=== PATIENT | female | born 1945 | race Caucasian/White ===

== ENCOUNTER 2024-07-12 08:35 | Day surgery (SDC) | payer MEDICARE, OTHER ==
[2024-07-12] VITALS (27 sets, daily range): BP systolic 94–137; BP diastolic 58–85; PULSE 80–96; RESP 8–22; TEMP 97.7; O2SAT 92–98
[~2024-07-12] VITALS: Ht 170.2 cm; Wt 107.6 kg
[~2024-07-12 08:35] MED LIST: AMI200T PO; APIX5TAB3 PO; BUSP5TAB3 PO; CITA20TA28 PO; FLUT16SP2 NS; FURO20TA4 PO; MELA1TAB11 PO; METO-539 PO; POLY17PO10 PO; POTA-188 PO; ROSU40TA89 PO; SYN0.112T PO
[2024-07-12] MEDS ORDERED: diphenhydrAMINE 25mg capsule PO ONE (09:05)
[2024-07-12] MEDS ORDERED: LORazepam 0.5 MG tablet PO ONE (09:05)
[2024-07-12] MEDS ORDERED: atropine 0.1mg/ml 10ml syringe IV ONE (09:05)
[2024-07-12] MEDS ORDERED: amiodarone 150mg/dext, iso-os 100 ML IV ONE (09:05)
[2024-07-12 09:53] LABS: EOSINOPHILS % (AUTO) 0 % (0-6); HEMOGLOBIN 12.5 g/dl (12.0-16.0); LYMPHOCYTES % (AUTO) 15.7 % (21-51); MEAN PLATELET VOLUME 7.5 FL (7.4-10.4); MONOCYTES # (AUTO) 0.5 X10'3 (0-0.9)
[2024-07-12 09:55] LABS: BASOPHILS % (AUTO) 0.4 % (0-1); HEMATOCRIT 38.5 % (35.0-45.0); LYMPHOCYTES # (AUTO) 1.1 X10'3 (1.1-4.8); MEAN CORPUSCULAR HEMOGLOBIN 32.3 PG (27.0-31.0); MEAN CORPUSCULAR HGB CONC 32.6 g/dL (33.0-36.5); MEAN CORPUSCULAR VOLUME 99.1 FL (78-98); MONOCYTES % (AUTO) 6.7 % (2-12); NEUTROPHILS # (AUTO) 5.6 X10'3 (1.8-7.7); NEUTROPHILS % (AUTO) 77.2 % (42-75); PLATELET COUNT 207 X10'3 (140-440); RED BLOOD COUNT 3.88 X10'6 (4.20-5.60); RED CELL DISTRIBUTION WIDTH 14.6 % (11.5-14.5); WHITE BLOOD COUNT 7.3 X10'3 (4.5-11.0)
[2024-07-12] MEDS ORDERED: PRE5T PO (10:03)
[2024-07-12] MEDS ORDERED: CITA40TA22 PO (10:03)
[2024-07-12] MEDS ORDERED: ACET-1025 PO (10:03)
[2024-07-12] MEDS ORDERED: CHOL10CA2 PO (10:03)
[2024-07-12] MEDS ORDERED: MIDO5TAB4 PO (10:03)
[2024-07-12] MEDS ORDERED: CETI10CA PO (10:03)
[2024-07-12] MEDS ORDERED: CYCL-1 PO (10:03)
[2024-07-12] MEDS ORDERED: ZAR2.5T PO (10:03)
[2024-07-12] MEDS ORDERED: CALC-1099 PO (10:03)
[2024-07-12] MEDS ORDERED: METO-384 PO (10:03)
[2024-07-12] MEDS ORDERED: ASPI-611 PO (10:03)
[2024-07-12] MEDS ORDERED: MULT-1085 PO (10:03)
[2024-07-12 10:07] LABS: PROTHROMBIN TIME 10.7 SECONDS (9.0-12.0)
[2024-07-12 10:13] LABS: ALBUMIN 3.7 G/DL (3.4-5.0); ANION GAP 7 (8-16); BLOOD UREA NITROGEN 34 MG/DL (7-18); BUN/CREATININE RATIO 35.4 (10.0-20.0); CALCIUM 9.1 MG/DL (8.5-10.1); CHLORIDE 101 MMOL/L (99-107); CREATININE 0.96 MG/DL (0.40-0.90); GLUCOSE 85 MG/DL (70-104); SODIUM 141 MMOL/L (135-145); TOTAL CARBON DIOXIDE 32.8 MMOL/L (24-32); eCRCL 48 ML/MIN; eGFR 56 ML/MIN
[2024-07-12 10:21] LABS: POTASSIUM 2.8 MMOL/L (3.5-5.1)
[2024-07-12] MEDS: MIDAZolam 1mg/ml 10ml vial IV ONE (10:45)
[2024-07-12] MEDS: morphine 10mg/ml inj. IV ONE (10:45)
[2024-07-12] MEDS: normal saline 1000ml 1,000 ML IV SCH (10:46)
[2024-07-12] MEDS: potassium Cl 20 mEq SR tablet PO STA ×2 (10:46→15:30)
[2024-07-12 10:58] LABS: PRO BRAIN NATRIURETIC PEPTIDE 1386 PG/ML (0-450)
== END 2024-07-12 15:30 | disposition home or self-care (01) ==
LOC: SSTAY O 08:35
PROVIDERS: ATTEND Internal Medicine Cardiovascular Disease
DX: I48.19 Other persistent atrial fibrillation (principal); I48.0 Paroxysmal atrial fibrillation; I25.10 Atherosclerotic heart disease of native coronary artery without angina pectoris; I10 Essential (primary) hypertension; E78.5 Hyperlipidemia, unspecified; E03.9 Hypothyroidism, unspecified; E66.9 Obesity, unspecified; F32.A Depression, unspecified; G47.30 Sleep apnea, unspecified; Z79.01 Long term (current) use of anticoagulants; Z79.890 Hormone replacement therapy; Z79.899 Other long term (current) drug therapy; Z90.710 Acquired absence of both cervix and uterus; Z95.0 Presence of cardiac pacemaker; Z96.653 Presence of artificial knee joint, bilateral; Z98.890 Other specified postprocedural states; Z68.37 Body mass index [BMI] 37.0-37.9, adult; Z88.8 Allergy status to other drugs, medicaments and biological substances; Z80.1 Family history of malignant neoplasm of trachea, bronchus and lung; Z83.3 Family history of diabetes mellitus
CPT/HCPCS: 36415; 80048; 83880; 85025; 85610; 92960; 93005; J2250; J2270; J7030; J2274

== ENCOUNTER 2024-12-02 07:02 | Day surgery (SDC) | payer MEDICARE, OTHER ==
[2024-12-01 10:35] LABS: BASOPHILS % (AUTO) 0.4 % (0-1); EOSINOPHILS % (AUTO) 0 % (0-6); HEMATOCRIT 38.6 % (35.0-45.0); LYMPHOCYTES # (AUTO) 1.1 X10'3 (1.1-4.8); LYMPHOCYTES % (AUTO) 15.6 % (21-51); MEAN CORPUSCULAR HEMOGLOBIN 32.9 PG (27.0-31.0); MEAN CORPUSCULAR HGB CONC 33.8 g/dL (33.0-36.5); MEAN CORPUSCULAR VOLUME 97.4 FL (78-98); MEAN PLATELET VOLUME 6.7 FL (7.4-10.4); MONOCYTES # (AUTO) 0.5 X10'3 (0-0.9); MONOCYTES % (AUTO) 6.6 % (2-12); NEUTROPHILS # (AUTO) 5.5 X10'3 (1.8-7.7); NEUTROPHILS % (AUTO) 77.4 % (42-75); PLATELET COUNT 203 X10'3 (140-440); RED BLOOD COUNT 3.96 X10'6 (4.20-5.60); RED CELL DISTRIBUTION WIDTH 15.3 % (11.5-14.5); WHITE BLOOD COUNT 7.1 X10'3 (4.5-11.0)
[2024-12-01 10:48] LABS: ALBUMIN 3.6 G/DL (3.4-5.0); ANION GAP 7 (8-16); BLOOD UREA NITROGEN 20 MG/DL (7-18); BUN/CREATININE RATIO 18.7 (10.0-20.0); CALCIUM 9.2 MG/DL (8.5-10.1); CHLORIDE 100 MMOL/L (99-107); CREATININE 1.07 MG/DL (0.40-0.90); GLUCOSE 84 MG/DL (70-104); POTASSIUM 3.3 MMOL/L (3.5-5.1); SODIUM 141 MMOL/L (135-145); TOTAL CARBON DIOXIDE 33.9 MMOL/L (24-32); eGFR 50 ML/MIN
[2024-12-01 10:50] LABS: INR 1.1 INR; PROTHROMBIN TIME 10.9 SECONDS (9.0-12.0)
[2024-12-02] VITALS (24 sets, daily range): BP systolic 112–142; BP diastolic 59–96; PULSE 70–94; RESP 14–16; TEMP 97.6; O2SAT 95–99
[~2024-12-02] VITALS: Ht 170.2 cm; Wt 109.8 kg
[~2024-12-02 07:02] MED LIST changes: +ACET-1025 PO; +ASPI-611 PO; +CALC-1099 PO; +CETI10CA PO; +CHOL10CA2 PO; -CITA20TA28 PO; +CITA40TA22 PO; +CYCL-1 PO; +METO-384 PO; -METO-539 PO; +MIDO5TAB4 PO; +MULT-1085 PO; +PRE5T PO; +ZAR2.5T PO
[2024-12-02] MEDS ORDERED: diphenhydrAMINE 25mg capsule PO ONE (07:20)
[2024-12-02] MEDS ORDERED: LORazepam 0.5 MG tablet PO ONE (07:20)
[2024-12-02] MEDS ORDERED: atropine 0.1mg/ml 10ml syringe IV ONE (07:20)
[2024-12-02] MEDS ORDERED: GABA-530 PO (07:31)
[2024-12-02] MEDS: potassium Cl 20 mEq SR tablet PO STA ×2 (08:56→08:57)
[2024-12-02] MEDS: amiodarone 150mg/dext, iso-os 100 ML IV ONE (10:14)
[2024-12-02] MEDS: MIDAZolam 1mg/ml 10ml vial IV ONE (10:15)
[2024-12-02] MEDS: morphine 10mg/ml inj. IV ONE (10:15)
[2024-12-02] MEDS: normal saline 1000ml 1,000 ML IV SCH (10:15)
== END 2024-12-02 11:47 | disposition home or self-care (01) ==
LOC: SSTAY O 07:02
PROVIDERS: ATTEND Internal Medicine Cardiovascular Disease
DX: I48.0 Paroxysmal atrial fibrillation (principal); I25.10 Atherosclerotic heart disease of native coronary artery without angina pectoris; I47.10 Supraventricular tachycardia, unspecified; I42.9 Cardiomyopathy, unspecified; I34.0 Nonrheumatic mitral (valve) insufficiency; I10 Essential (primary) hypertension; E78.5 Hyperlipidemia, unspecified; G47.30 Sleep apnea, unspecified; Z98.890 Other specified postprocedural states; E03.9 Hypothyroidism, unspecified; F32.A Depression, unspecified; Z90.710 Acquired absence of both cervix and uterus; Z96.653 Presence of artificial knee joint, bilateral; Z80.1 Family history of malignant neoplasm of trachea, bronchus and lung; Z88.8 Allergy status to other drugs, medicaments and biological substances
CPT/HCPCS: 36415; 80048; 84132; 85025; 85610; 92960; 93005; J0282; J2250; J2270; J7030; J2274